=== PATIENT | female | born 1955 | race Caucasian/White ===

== ENCOUNTER 2019-07-19 19:29 | Emergency (ER) | payer BC ==
[~2019-07-19] VITALS: Ht 160 cm; Wt 63.8 kg
[~2019-07-19 19:29] MED LIST: HUM7525 SQ; INSU100V9 SQ; OMEP20TA5 PO; PRED1TAB PO; TRAZ-256 PO
[2019-07-19 20:22] LABS: BASOPHILS # (AUTO) 0.1 X10'3 (0-0.2); BASOPHILS % (AUTO) 0.5 % (0-1); EOSINOPHILS # (AUTO) 0.1 X10'3 (0-0.9); EOSINOPHILS % (AUTO) 0.6 % (0-6); LYMPHOCYTES # (AUTO) 1.3 X10'3 (1.1-4.8); LYMPHOCYTES % (AUTO) 12.1 % (21-51); MEAN CORPUSCULAR HEMOGLOBIN 31.4 PG (27.0-31.0); MEAN CORPUSCULAR HGB CONC 33.4 g/dL (33.0-36.5); MEAN CORPUSCULAR VOLUME 94.2 FL (78-98); MONOCYTES # (AUTO) 0.5 X10'3 (0-0.9); MONOCYTES % (AUTO) 4.7 % (2-12); NEUTROPHILS # (AUTO) 8.6 X10'3 (1.8-7.7); NEUTROPHILS % (AUTO) 82.1 % (42-75); PLATELET COUNT 327 X10'3 (140-440); RED BLOOD COUNT 4.46 X10'6 (4.20-5.60); RED CELL DISTRIBUTION WIDTH 13.2 % (11.5-14.5); WHITE BLOOD COUNT 10.5 X10'3 (4.5-11.0)
[2019-07-19 20:33] LABS: ALANINE AMINOTRANSFERASE 27 U/L (12-78); ALBUMIN 3.9 G/DL (3.4-5.0); ALBUMIN/GLOBULIN RATIO 1.1 (1.1-1.5); ALKALINE PHOSPHATASE 136 IU/L (46-116); ANION GAP 10 (8-16); ASPARTATE AMINO TRANSFERASE 29 U/L (10-37); BILIRUBIN,TOTAL 0.4 MG/DL (0.1-1.0); BLOOD UREA NITROGEN 12 MG/DL (7-18); BUN/CREATININE RATIO 14.5 (6.6-38.0); CALCIUM 10.4 MG/DL (8.5-10.1); CHLORIDE 101 MMOL/L (99-107); CREATININE 0.83 MG/DL (0.40-0.90); GLUCOSE 332 MG/DL (70-104); LIPASE 62 U/L (73-393); POTASSIUM 4.4 MMOL/L (3.5-5.1); SODIUM 139 MMOL/L (135-145); TOTAL CARBON DIOXIDE 27.6 MMOL/L (24-32); TOTAL PROTEIN 7.6 G/DL (6.4-8.2); eGFR 69 ML/MIN
[2019-07-19 20:58] LABS: CLARITY,URINE CLEAR (Clear); COLOR,URINE YELLOW (Yellow); GLUCOSE, URINE >=1000 mg/dl (Neg); KETONES,URINE TRACE mg/dl (Neg); LEUKOCYTE ESTERASE ,URINE NEGATIVE (Neg); NITRITES, URINE NEGATIVE (Neg); OCCULT BLOOD,URINE NEGATIVE (Neg); PH,URINE 7.5 (4.8-8.0); PROTEIN,URINE NEGATIVE (Neg); UROBILINOGEN,URINE 0.2 E.U/dL (0.2-1.0)
[2019-07-19 21:15] LABS: UA COLLECTION TYPE CLN CATCH MIDSTREAM
[2019-07-19 21:16] LABS: BACTERIA,URINE NONE SEEN /HPF (Neg); RBC,URINE NONE SEEN /HPF (0-2); SQUAMOUS EPITHELIAL CELL,UR FEW /LPF (FEW); WBC,URINE 0-4 /HPF (0-4)
[2019-07-19 21:52] VITALS: BP 125/83
[2019-07-19] MEDS ORDERED: ondansetron/PF 4mg/2ml inj IV ONE (21:55)
[2019-07-19] MEDS ORDERED: normal saline 1000ML IV soln IVB ONE (21:55)
[2019-07-19] MEDS ORDERED: LIDOcaine Viscous 15ml cup MM ONE (21:55)
[2019-07-19] MEDS ORDERED: sucralfate 1gm/10ml UD suspension PO STA (21:55)
[2019-07-19] MEDS ORDERED: mag hydrox/Alum hydrox/simeth 30ml oral suspension PO ONE (21:55)
[2019-07-19] MEDS: morphine 4 MG/ML inj SYRINge IV PRN ×2 (22:19→23:00)
[2019-07-19] MEDS ORDERED: pantoprazole 40 MG vial IV ONE (23:15)
[2019-07-19] MEDS ORDERED: DEXL60CA3 PO (23:29)
== END 2019-07-19 23:52 | disposition home or self-care (01) ==
LOC: ER 19:30
DX: R10.13 Epigastric pain (principal); R50.9 Fever, unspecified; R19.7 Diarrhea, unspecified; R11.2 Nausea with vomiting, unspecified; E11.9 Type 2 diabetes mellitus without complications; Z72.89 Other problems related to lifestyle; Z98.0 Intestinal bypass and anastomosis status; Z98.890 Other specified postprocedural states; Z88.2 Allergy status to sulfonamides; Z79.899 Other long term (current) drug therapy
CPT/HCPCS: 36415; 74176; 80053; 81001; 82948; 83690; 85025; 96361; 96374; 96375; 96376; 99284; C9113; J2270; J2405; J7030